=== PATIENT | female | born 1975 | race Caucasian/White ===

== ENCOUNTER 2020-09-03 11:45 | Outpatient (CLI) | payer BC, SELFPAY ==
[2020-09-03 12:45] LABS: Alanine Aminotransferase 96 U/L (4-35); Albumin Level 4.4 g/dL (3.5-5.1); Alkaline Phosphatase 63 U/L (38-126); Anion Gap 5 mmol/L (8-16); Aspartate Amino Transferase 70 U/L (14-36); Bilirubin,Total < 0.1 mg/dL (0.2-1.3); Blood Urea Nitrogen 11 mg/dL (7-17); Carbon Dioxide 29 mmol/L (22-30); Chloride 105 mmol/L (98-107); Creatine Kinase 52 U/L (30-135); Estimated Glomerular Filt Rate > 60; Glucose 93 mg/dL (65-105); Sodium 139 mmol/L (137-145)
[2020-09-03 13:01] LABS: Free T4 Free Thyroxine 0.61 ng/mL (0.78-2.19)
[2020-09-03 13:16] LABS: Total Triiodothyronine (T3) 2.62 NG/ML (0.97-1.69)
== END 2020-09-03 11:46 | disposition home or self-care (01) ==
LOC: ANHWCLAB 11:48
PROVIDERS: PCP Family Medicine; Visit Provider Internal Medicine Endocrinology, Diabetes & Metabolism
DX: E03.9 Hypothyroidism, unspecified (principal)
CPT/HCPCS: 36415; 80053; 82550; 84439; 84443; 84480